=== PATIENT | male | born 2000 | race Caucasian/White ===

== ENCOUNTER 2020-08-22 12:22 | Emergency (ER) | payer BC, SELFPAY ==
[2020-08-22 12:28] VITALS: BP 133/77; PULSE 74; O2SAT 97
[2020-08-22 12:44] VITALS: BP 101/63; PULSE 71; RESP 18; TEMP 36.4; O2SAT 98; BMI 23.7
[2020-08-22 13:20] VITALS: BP 115/72; PULSE 72; RESP 18; O2SAT 98
--- NOTE | 2020-08-22 13:39 | PC.NURSE ---
DR MALONE IN TO SEE PATIENT, PT DOES NOT NEED EKG AT THIS TIME. TO CANCEL ORDER.
--- NOTE | 2020-08-22 13:45 | ED_ITS ---
HPI - General Adult General Chief complaint: General Medical Stated complaint: syncope after vaccine Time Seen by Provider: 08/22/20 13:45 Source: patient Mode of arrival: ambulatory Limitations: no limitations History of Present Illness HPI narrative: 19-year-old male who presents emergency department for evaluation of a syncopal episode after receiving his 1st COVID-19 Moderna vaccination. The patient states that he received his vaccination and then was sitting in a chair when he passed out. He states that he woke up on the floor surrounded by paramedics. He states that initially had a headache but this resolved by the time I got to the emergency department. He is currently complaining of left jaw pain and pain in a chipped tooth in the back of his mouth. He also has some pain in his left-sided neck muscles. The patient states that he has passed out in the past twice when he has had a blood draw and 1 time after had a meningitis vaccination. Currently he states that his pain in his jaw and tooth her mild in intensity, constant and dull in character. He also points to his left trapezius muscle when asked to localize his neck pain. He states this pain is very mild. He states that he was in his usual state of health prior to having the syncopal episode. Review of Systems Review of Systems: Yes all other systems are reviewed and are negative [facility] Past Medical History [facility] Narrative: Patient has a history of asthma and vasovagal syncopal episodes after blood draw and vaccinations in the past. He denies tobacco use, he states that he rarely drinks alcohol, he states that he rarely smokes marijuana. Medical History Asthma Surgical History No significant past surgical history Social History Social History Advance Directives: No Advance Directives Information Provided: No Physical Exam Vital Signs: Vital Signs: Last Vital Signs Temp 97.6 F 08/22/20 12:44 Pulse 72 08/22/20 13:20 Resp 18 08/22/20 13:20 BP 115/72 08/22/20 13:20 Pulse Ox 98 08/22/20 13:20 Body Mass Index 23.7 Const: General: cooperative and healthy appearing Orientation/consciousness: oriented to person and oriented to place Limitations: no limitations HENMT: Head: Yes normal to inspection, Yes normocephalic and Yes atraumatic Ears: external ears normal General nose exam: Normal external nose present Face and sinus: Yes normal facial exam Mouth: Normal oral and palatal mucosa present and other (Mild tenderness with palpation of left mandible) Throat: Yes posterior oropharynx normal and Yes other (Small chip#32 tooth) Eyes: Periorbital: periorbital findings normal Eyelids: Yes eyelids normal Conjunctivae: conjunctivae normal Sclerae: sclerae normal Corneas: corneas normal Pupils: Equal, round and reactive pupils present Direct Ophthalmoscopy: normal light reflex Neck: Neck: Yes full ROM, Yes no lymphadenopathy, Yes no meningeal signs, Yes trachea midline, Yes supple and Yes other (Tender left trapezius muscle) Chest: Chest palpation & inspection: normal inspection of the chest and normal palpation of entire chest wall Resp: Effort & Inspection: normal respiratory effort and able to speak in complete sentences Auscultation: clear to auscultation bilaterally Cardio: Rate: regular rate Rhythm: regular rhythm Heart sounds: S1 normal heart sound present, S2 normal heart sound present and no murmurs GI: Inspection: Yes normal to inspection Palpation (GI): Soft to palpation, nontender, no guarding, not rigid and No hepatosplenomegaly present : General: Yes no CVA tenderness Back/Spine/Pelvis: Back: no CVA tenderness Cervical Spine: normal cervical lordosis Thoracic/Lumbar Spine: thoracic and lumbar spine normal to inspection Skin: Lesions: no lesions Rashes: no rashes Wounds: no wounds Neuro: General: oriented to person, oriented to place and no meningeal signs Cranial nerves: Yes CN's II-XII intact bilaterally and Yes Equal, round and reactive pupils present Cognition (Neuro): normal cognition Motor exam (neuro): 5/5 motor strength present throughout Extrem: General: Yes normal to inspection and Yes full ROM Psych: Appearance: well kempt Mental Status: mental status grossly normal Speech and movement: Normal speech and movement present Affect: normal affect Attitude: cooperative Thought process: Normal thought process present Thought content: Normal thought content present Course Course Course Narrative: 19-year-old male who presents emergency department for evaluation of syncopal episode after getting his 1st Moderna COVID-19 vaccination. The patient did fall from a seated position to the floor. On examination he does have some very mild tenderness with palpation of his left mandible however he is able to open and close his mouth without any difficulty, he does not feel any discomfort with biting down or putting his teeth together. The patient does have a chipped tooth in position number 32. He also has tenderness with palpation was left trapezius muscles. Given these findings, and the fact that he has no concern symptoms at this time, I do not think the patient needs a CT scan of the head, neck her mandible and I did discuss this with him. He is advised to take Tylenol and ibuprofen for pain. He was given printed instructions on vasovagal syncopal episodes and on closed head injury/concussion. I did tell him that he can get his 2nd vaccination as scheduled. The patient will need to follow-up with a dentist for his chipped tooth. Discharge Plan Discharge Clinical Impression: Vasovagal syncope Closed head injury Qualifiers: Encounter type: initial encounter Qualified Code(s): S09.90XA - Unspecified injury of head, initial encounter Contusion of jaw Qualifiers: Encounter type: initial encounter Qualified Code(s): S00.83XA - Contusion of other part of head, initial encounter Chipped tooth Qualifiers: Encounter type: initial encounter Fracture type: closed Qualified Code(s): S02.5XXA - Fracture of tooth (traumatic), initial encounter for closed fracture Patient Disposition: Home, Self-Care Instructions: Concussion (ED), Acute Dental Trauma (ED) Additional Instructions: Your presentation is consistent with vasovagal syncope (fainting), triggered by the injection. You are not allergic to the COVID-19 vaccine and you can get your 2nd shot When you get you 2nd shot you should try to lie down for the shot or sit in a chair with his feet elevated. You should tell the nurse given you the vaccination that you pass out after getting shots so that they are aware that you need to be observed. You should follow-up with a dentist for your chipped tooth Take ibuprofen 200 mg pills, 3 pills every 6 hours as needed for pain. Take Tylenol (acetaminophen) 500 mg pills, 2 pills every 4 to 6 hours as needed for pain. Follow-up with your doctor in 2 days. Please return to the emergency department if your symptoms get worse or if you develop any symptoms that are concerning to you.
== END 2020-08-22 14:14 | disposition home or self-care (01) ==
PROVIDERS: Emergency Provider Emergency Medicine Emergency Medical Services
DX: R55 Syncope and collapse (principal); S09.90XA Unspecified injury of head, initial encounter; S00.83XA Contusion of other part of head, initial encounter; S02.5XXA Fracture of tooth (traumatic), initial encounter for closed fracture; W07.XXXA Fall from chair, initial encounter; Y93.89 Activity, other specified; Y92.9 Unspecified place or not applicable; Y99.9 Unspecified external cause status
CPT/HCPCS: 99283